=== PATIENT | male | born 1970 | race Caucasian/White ===

== ENCOUNTER 2021-07-19 00:59 | Inpatient (IN) | payer BC ==
[~2021-07-19] VITALS: Ht 177.8 cm; Wt 113.4 kg
--- NOTE | 2021-07-19 01:20 | NUR ---
Pt here from home for c/o L arm numbness starting 1 hr [employer]ized [employer]. Pt. denies cp, sob. No changes in vision, speech. AOx4.
--- NOTE | 2021-07-19 01:35 | NUR ---
Pt taken to ct
[2021-07-19 01:37] LABS: HEMATOCRIT 42.6 % (36.7-47.1); MEAN CORPUSCULAR HEMOGLOBIN 32.1 uug (23.8-33.4); MEAN CORPUSCULAR VOLUME 93.4 fL (73.0-96.2); PLATELET COUNT (AUTO) 216 K/uL (152-348)
[2021-07-19 01:48] LABS: CREATININE 1.2 mg/dL (0.6-1.3); POTASSIUM 3.7 mmol/L (3.5-5.1)
[2021-07-19 01:54] LABS: BILIRUBIN,DIRECT 0.1 mg/dL (0.0-0.2); BILIRUBIN,TOTAL 0.3 mg/dL (0.2-1.0); TOTAL PROTEIN, SERUM 6.6 g/dL (6.4-8.2)
--- NOTE | 2021-07-19 01:55 | NUR ---
Pt returned from ct. NAD. VSS.
--- NOTE | 2021-07-19 02:55 | NUR ---
Livan loza in [facility] - 07/19/21 at 0408 by ANASTACIO Pt returned from ct
--- NOTE | 2021-07-19 03:12 | NUR ---
Paged epic for pt admission.
[2021-07-19] MEDS ORDERED: ASPIRIN 325 MG TABLET PO ONE (03:15)
--- NOTE | 2021-07-19 03:19 | NUR ---
Dr. Núñez on panel call with Dr. Lee Little.
[2021-07-19] MEDS ORDERED: MAGNESIUM HYDROXIDE 30 ML LIQUID UDC PO PRN (03:30)
[2021-07-19] MEDS ORDERED: ONDANSETRON 4 MG/2 ML VIAL IV PRN (03:30)
[2021-07-19] MEDS ORDERED: ACETAMINOPHEN 325 MG TABLET PO PRN (03:30)
--- NOTE | 2021-07-19 03:30 | NUR ---
Pt sleeping. VSS. Will continue to monitor.
[2021-07-19 05:34] LABS: HEMATOCRIT 40.6 % (36.7-47.1); MEAN CORPUSCULAR HEMOGLOBIN 32.1 uug (23.8-33.4); PLATELET COUNT (AUTO) 221 K/uL (152-348)
[2021-07-19 05:53] LABS: BILIRUBIN,TOTAL 0.3 mg/dL (0.2-1.0); CREATININE 1.2 mg/dL (0.6-1.3); POTASSIUM 4.5 mmol/L (3.5-5.1); TOTAL PROTEIN, SERUM 6.4 g/dL (6.4-8.2)
[2021-07-19 05:59] LABS: THYROID STIMULATING HORMONE 2.111 mIU/mL (0.358-3.740)
[2021-07-19] MEDS ORDERED: BLOOD SUGAR DIAGNOSTIC 1 EACH STRIP VI SCH ×2 (06:00→07:30)
[2021-07-19] MEDS ORDERED: PANTOPRAZOLE SODIUM 40 MG TABLET.DR PO SCH (07:00)
--- NOTE | 2021-07-19 07:10 | NUR ---
Gave report to CEDRIC Foster.
--- NOTE | 2021-07-19 07:45 | NUR ---
Pt sleeping with NAD noted. Attempted to call report to tele floor, assigned nurse to call back.
--- NOTE | 2021-07-19 09:30 | NUR ---
Pt trans to tele floor rm 301A with NAD noted, assigned nurse to call back for report.
--- NOTE | 2021-07-19 09:56 | NUR ---
SBAR report given to CEDRIC Cutler via telephone.
--- NOTE | 2021-07-19 10:00 | NUR ---
Received patient from ED. Patient AOx4. On room air. no signs of acute distress. Patient denies pain/ discomfort. Oriented patient to unit and room. Vital signs WNL. Belongings accounted for. Call light within reach. Will continue to monitor.
[2021-07-19] MEDS ORDERED: SIMV-49 PO (14:23)
[2021-07-19] MEDS ORDERED: ASPI-618 PO (14:23)
[2021-07-19 15:43] VITALS: BP 124/73
--- NOTE | 2021-07-19 16:03 | NUR ---
Discharged patient to home. AOx4. On room air. No signs of acute distress. Patient denies pain/ discomfort. Vital signs WNL. IV access removed. ID armband removed. Discharge instructions given to patient and patient verbalized understanding. Discharge paperwork signed. Belongings accounted for and belongings list signed. Patient wheeled to hospital lobby. Patient left hospital via private car with .
[2021-07-19] MEDS ORDERED: SIMVASTATIN 40 MG TABLET PO SCH (21:00)
[2021-07-20] MEDS ORDERED: ASPIRIN EC 81 MG TABLET.DR PO SCH (09:00)
== END 2021-07-19 15:50 | disposition home or self-care (01) | DRG 69 ==
LOC: ER 01:01 → TELE3 09:02
PROVIDERS: ADMIT Internal Medicine; ATTEND Internal Medicine
DX: G45.9 Transient cerebral ischemic attack, unspecified (principal); J98.11 Atelectasis; E66.9 Obesity, unspecified; E78.5 Hyperlipidemia, unspecified; Z20.822 Contact with and (suspected) exposure to COVID-19; M54.12 Radiculopathy, cervical region; M27.40 Unspecified cyst of jaw; J32.0 Chronic maxillary sinusitis; Z68.35 Body mass index [BMI] 35.0-35.9, adult; R29.700 NIHSS score 0
CPT/HCPCS: 36415; 70030-TC; 70450; 71045; 84443; 85025; 85651; 85730; 93005; 93307; 97161; A4663; G0378